=== PATIENT | male | born 1985 | race Caucasian/White ===

== ENCOUNTER 2017-06-15 06:31 | Observation (INO) ==
--- NOTE | 2017-06-15 06:48 | Emergency Department Note ---
Disposition Clinical Impression: Suicidal ideation Alcohol withdrawal Qualifiers: Complication of substance-induced condition: with unspecified complication Qualified Code(s): F10.239 - Alcohol dependence with withdrawal, unspecified Disposition: Admitted As Inpatient Condition: Fair Referrals: NONE,PCP [Primary Care Provider] - Psych HPI - General Stated Complaint: SI Time Seen by Provider: 06/15/17 06:39 Source: patient, family Mode of arrival: private vehicle Limitations: no limitations Nursing Notes Reviewed: Yes Vital Signs Reviewed: Yes - History of Present Illness Pt complaint: suicidal ideation, feels depressed Onset (ago): week(s) Duration: constant, getting worse History of similar episodes: Yes Improves with: none Worsens with: none Context: recent alcohol abuse, significant life stressor (custody [place]) Alleged intoxication: No Associated Psychiatric Symptoms: depression, suicidal ideation Associated symptoms: Reports: denies other symptoms Traumatic symptoms: denies traumatic injury Treatments prior to arrival: none Self harm or harm to others: admits thoughts of self harm, has plan ("hanging") - Related Data Home Medications Medication Instructions Recorded Confirmed No Known Home Drugs 06/15/17 06/15/17 Allergies Allergy/AdvReac Type Severity Reaction Status Date / Time No Known Allergies Allergy Verified 06/15/17 06:35 All systems ED: reviewed and negative except as stated. Review of Systems: As Per HPI Constitutional: Denies: fever, chills, weakness, weight change, night sweats Eyes: Denies: eye pain, vision change ENT ED: Denies: throat pain, epistaxis, congestion, dysphagia Cardiovascular: Denies: chest pain, palpitations, dyspnea on exertion Respiratory: Denies: cough, dyspnea, wheezes Gastrointestinal: Denies: abdominal pain, nausea, vomiting Musculoskeletal: Denies: back pain, neck pain, arthralgia Integumentary: Denies: rash, lesions Neurological: Denies: headache, weakness, confusion, vertigo Psychiatric: Reports: as per HPI, depression, suicidal thoughts. Denies: homicidal thoughts, auditory hallucinations, visual hallucinations Endocrine: Denies: fatigue, heat or cold intolerance, polydipsia, polyuria Past Medical History - Past Medical History Attestation: Yes The following information was validated with the patient. Source: patient Medical history: Reports: non-contributory Surgical history: Reports: non-contributory Psychiatric history: Reports: depression. Denies: prior suicide attempt, previous psychiatric hospitalization - Social History Smoking Status: Current every day smoker Alcohol use: Reports: heavy, recent Last drink: days (ago) (0.5) Drug use: Reports: none Physical Exam - General Limitations: no limitations General appearance: alert, in no apparent distress - Head Head exam: atraumatic, normocephalic, normal inspection - Eye Eye exam: Present: normal appearance, PERRL. Absent: scleral icterus, conjunctival injection, periorbital swelling - ENT ENT exam: mucous membranes moist - Neck Neck exam: Present: normal inspection, full ROM, trachea midline. Absent: tenderness - Expanded Neck Exam Neck exam focused ED: Absent: midline tenderness, paraspinal tenderness, tenderness (other), anterior neck swelling, JVD, carotid bruit - Chest Chest inspection: Present: normal inspection, symmetric chest wall rise - Respiratory Respiratory exam: Present: normal lung sounds bilaterally. Absent: respiratory distress, wheezes, stridor, accessory muscle use, prolonged expiratory phase - Cardiovascular Cardiovascular exam: Present: regular rate, normal rhythm - Extremities Exam Extremities exam: Present: normal inspection, full ROM - Back Exam Back exam: Present: normal inspection, full ROM - Neurological Exam Neurological exam: Present: alert, oriented X3, CN II-XII intact, normal gait - Psychiatric Psychiatric exam: Present: normal affect, depressed - Skin Skin exam: Present: warm, dry, intact, normal color Course Course Narrative: Patient with Hx of alcoholism presents from home with for psychiatric evaluation. He states, "I've been suicidal since last Monday and I need help." He describes thoughts of hanging himself. No physical attempt, no trauma, no complaints of pain anywhere. He has Hx of depression but does not take any meds. He states that he self-medicates with alcohol. He drinks heavily every day. Denies drug use. Protocol orders entered. Patient's alcohol level is 130 @ 07:00. He was experiencing withdrawal symptoms when he was seen by Dr. Gibbons. Valium was ordered for him. Patient admitted - Dr. Gibbons discussed the case with Dr. Cervantes. Vital Signs Temperature 98.6 F 06/15/17 06:36 Pulse Rate 83 06/15/17 06:36 Respiratory Rate 20 06/15/17 06:36 Blood Pressure 149/97 06/15/17 06:36 O2 Sat by Pulse Oximetry 98 06/15/17 06:36 Temperature 98.6 F 06/15/17 06:36 Pulse Rate 83 06/15/17 06:36 Respiratory Rate 20 06/15/17 06:36 Blood Pressure 149/97 06/15/17 06:36 O2 Sat by Pulse Oximetry 98 06/15/17 06:36 Oxygen Delivery Oxygen Delivery Room Air Psych - Lab Data Lab results reviewed: Yes I reviewed the patient's lab results. Result diagrams: 06/15/17 07:00 06/15/17 07:00 Lab Results 06/15/17 06/15/17 06/15/17 Range/Units 06:45 06:45 07:00 WBC 8.5 (4.3-11.1) K/mcL RBC 5.17 (4.19-5.50) M/mcL Hgb 16.4 (12.9-16.9) g/dL Hct 48.2 (37.5-50.1) % MCV 93.2 (83.0-100.0) fL MCH 31.7 (28.0-33.3) pg MCHC 34.0 (31.6-35.5) g/dL RDW 12.3 (11.5-14.5) % Plt Count 292 (140-400) K/mcL MPV 9.0 L (9.4-12.4) fL Immature Gran % 1.1 (0-4) % Seg Neutrophils % 58.5 % Lymphocytes % 31.8 % Monocytes % 7.0 % Eosinophils % 0.8 % Basophils % 0.8 % Neutrophils # 5.0 (1.6-8.9) K/mcL Lymphocytes # 2.7 (0.6-4.6) K/mcL Monocytes # 0.6 (0.0-1.3) K/mcL Eosinophils # 0.1 (0.0-0.6) K/mcL Basophils # 0.1 (0.0-0.2) K/mcL Sodium (136-145) mEq/L Potassium (3.5-4.5) mEq/L Chloride (98-109) mEq/L Carbon Dioxide (19-29) mEq/L BUN (8-26) mg/dL Creatinine (0.72-1.25) mg/dL Est GFR ( Amer) (> 60) Est GFR (Non-Af Amer) (> 60) BUN/Creatinine Ratio (6-26) Glucose (70-99) mg/dL Calculated Osmolality (280-300) Calcium (8.6-10.8) mg/dL TSH (0.350-4.840) mcIU/mL Urine Color Yellow (Yellow) Urine Clarity Clear (Clear) Urine pH 7.5 (5.0-8.0) pH Units Ur Specific [place] 1.022 (1.010-1.025) Urine Protein Negative (Neg-Trace) mg/dL Urine Glucose (UA) Normal (Normal) mg/dL Urine Ketones Negative (Negative) mg/dL Urine Blood Negative (Negative) Urine Nitrite Negative (Negative) Urine Bilirubin Negative (Negative) Urine Urobilinogen Normal (Normal) mg/dL Ur Leukocyte Esterase Negative (Negative) Salicylates (15-30) mg/dL Urine Opiates Screen Negative (Xfqosv=754) ng/mL Acetaminophen (10-30) mcg/mL Ur Barbiturates Screen Negative (Fmrzcm=903) ng/mL Ur Phencyclidine Scrn Negative (Cutoff=25) ng/mL Ur Amphetamines Screen Negative (Ekffxu=9476) ng/mL U Benzodiazepines Scrn Negative (Htkviv=673) ng/mL Urine Cocaine Screen Negative (Cutoff= 300) ng/mL U Marijuana (THC) Screen Negative (Cutoff = 50) ng/mL Ethyl Alcohol (0-10) mg/dL 06/15/17 Range/Units 07:00 WBC (4.3-11.1) K/mcL RBC (4.19-5.50) M/mcL Hgb (12.9-16.9) g/dL Hct (37.5-50.1) % MCV (83.0-100.0) fL MCH (28.0-33.3) pg MCHC (31.6-35.5) g/dL RDW (11.5-14.5) % Plt Count (140-400) K/mcL MPV (9.4-12.4) fL Immature Gran % (0-4) % Seg Neutrophils % % Lymphocytes % % Monocytes % % Eosinophils % % Basophils % % Neutrophils # (1.6-8.9) K/mcL Lymphocytes # (0.6-4.6) K/mcL Monocytes # (0.0-1.3) K/mcL Eosinophils # (0.0-0.6) K/mcL Basophils # (0.0-0.2) K/mcL Sodium 143 (136-145) mEq/L Potassium 4.0 (3.5-4.5) mEq/L Chloride 105 (98-109) mEq/L Carbon Dioxide 27 (19-29) mEq/L BUN 10 (8-26) mg/dL Creatinine 0.87 (0.72-1.25) mg/dL Est GFR ( Amer) > 60 (> 60) Est GFR (Non-Af Amer) > 60 (> 60) BUN/Creatinine Ratio 11 (6-26) Glucose 102 H (70-99) mg/dL Calculated Osmolality 295 (280-300) Calcium 9.1 (8.6-10.8) mg/dL TSH 2.070 (0.350-4.840) mcIU/mL Urine Color (Yellow) Urine Clarity (Clear) Urine pH (5.0-8.0) pH Units Ur Specific [place] (1.010-1.025) Urine Protein (Neg-Trace) mg/dL Urine Glucose (UA) (Normal) mg/dL Urine Ketones (Negative) mg/dL Urine Blood (Negative) Urine Nitrite (Negative) Urine Bilirubin (Negative) Urine Urobilinogen (Normal) mg/dL Ur Leukocyte Esterase (Negative) Salicylates < 5.0 L (15-30) mg/dL Urine Opiates Screen (Pkixhl=567) ng/mL Acetaminophen < 1.0 L (10-30) mcg/mL Ur Barbiturates Screen (Egsbpd=758) ng/mL Ur Phencyclidine Scrn (Cutoff=25) ng/mL Ur Amphetamines Screen (Pgmmzn=3274) ng/mL U Benzodiazepines Scrn (Osekag=147) ng/mL Urine Cocaine Screen (Cutoff= 300) ng/mL U Marijuana (THC) Screen (Cutoff = 50) ng/mL Ethyl Alcohol 130 H (0-10) mg/dL Psychiatric Medical Clearance - Medical Clearance Checklist Does the patient have a NEW psychiatric condition?: Yes Any abnormalities indicating possible medical illness?: No Any history of medical issues?: No Medical History: No Social History Section defined Any abnormal vital signs prior to transfer?: No Current Vitals: Last Vital Signs Temp 98.6 F 06/15/17 06:36 Pulse 83 06/15/17 06:36 Resp 20 06/15/17 06:36 BP 149/97 06/15/17 06:36 Pulse Ox 98 06/15/17 06:36 Is the patient intoxicated or cognitively impaired?: No Psychiatric Lab Panel: Drug Levels and Toxicity 06/15/17 06/15/17 06:45 07:00 Urine Opiates Screen Negative Acetaminophen < 1.0 L Ur Barbiturates Screen Negative Ur Phencyclidine Scrn Negative Ur Amphetamines Screen Negative U Benzodiazepines Scrn Negative Urine Cocaine Screen Negative U Marijuana (THC) Screen Negative Ethyl Alcohol 130 H Any abnormalities on the physical exam?: No Any abnormal labs?: No Abnormal Labs: Abnormal lab results MPV 9.0 fL (9.4-12.4) L 06/15/17 07:00 Glucose 102 mg/dL (70-99) H 06/15/17 07:00 Salicylates < 5.0 mg/dL (15-30) L 06/15/17 07:00 Acetaminophen < 1.0 mcg/mL (10-30) L 06/15/17 07:00 Ethyl Alcohol 130 mg/dL (0-10) H 06/15/17 07:00 Does the patient require durable medical equiptment?: No Is the patient ambulatory?: Yes Is the patient a fall risk?: No Has the patient been medically cleared?: Yes Statement of Medical Clearance: I have evaluated the patient, reviewed diagnostic information, and certify that the patient's medical condition is sufficiently stable that transfer to the psychiatric unit does not pose a significant risk of deterioration. Attestation Statement - Attestation Attestation: I examined this patient and my medical decision-making was reviewed with the Resident Physician. I agree with the documented findings, disposition and treatment plan as described except to the extent set forth below. Patient remains suicidal of the time of my evaluation. Is having moderately severe tremors. He cannot estimate how much he drinks everyday, says is much as he can get from the time he gets up until time he goes to bed. His significant other at bedside estimates 18-24 beers plus about a pint of vodka per day on average. Oral Valium given. Patient will require alcohol detox. We will admit him medically with inpatient consult to psychiatry.
[2017-06-15 06:57] LABS: Bilirubin,Urine Negative (Negative); Blood,Urine Negative (Negative); Clarity,Urine Clear (Clear); Color,Urine Yellow (Yellow); Glucose,Urine (UA) Normal (Normal); Ketones,Urine Negative (Negative); Leukocyte Esterase,Urine Negative (Negative); Nitrite,Urine Negative (Negative); PH,Urine 7.5 pH Units (5.0-8.0); Protein,Urine Negative (Neg-Trace); Specific Gravity,Urine 1.022 (1.010-1.025); Urobilinogen,Urine Normal (Normal)
[2017-06-15 07:03] LABS: Amphetamine Screen,Urine Negative ng/mL (Cutoff=1000); Barbiturate Screen,Urine Negative ng/mL (Cutoff=200); Benzodiazepines Screen,Urine Negative ng/mL (Cutoff=200); Cannabinoid Screen,Urine Negative ng/mL (Cutoff = 50); Cocaine Screen,Urine Negative ng/mL (Cutoff= 300); Opiate Screen,Urine Negative ng/mL (Cutoff=300); Phencyclidine Screen,Urine Negative ng/mL (Cutoff=25)
[2017-06-15 07:17] LABS: Eosinophils % 0.8 %; Hematocrit 48.2 % (37.5-50.1); Hemoglobin 16.4 g/dL (12.9-16.9); Immature Granulocytes % 1.1 % (0-4); Lymphocytes % 31.8 %; Mean Corpuscular Hemoglobin 31.7 pg (28.0-33.3); Mean Corpuscular Volume 93.2 fL (83.0-100.0); Platelet Count 292 K/mcL (140-400); Red Blood Count 5.17 M/mcL (4.19-5.50); Red Cell Distribution Width 12.3 % (11.5-14.5); Segmented Neutrophils % 58.5 %
[2017-06-15 07:18] LABS: Basophils # 0.1 K/mcL (0.0-0.2); Basophils % 0.8 %; Eosinophils # 0.1 K/mcL (0.0-0.6); Lymphocytes # 2.7 K/mcL (0.6-4.6); Monocytes # 0.6 K/mcL (0.0-1.3)
[2017-06-15] MEDS ORDERED: diazePAM 10 MG TABLET PO ONE (07:26)
[2017-06-15 07:40] LABS: BUN/Creatinine Ratio 11 (6-26); Blood Urea Nitrogen 10 mg/dL (8-26); Calcium 9.1 mg/dL (8.6-10.8); Carbon Dioxide 27 mEq/L (19-29); Chloride 105 mEq/L (98-109); Ethanol 130 mg/dL (0-10); Glucose 102 mg/dL (70-99); Osmolality,Calculated 295 (280-300); Sodium 143 mEq/L (136-145); eGFR For African Americans > 60 (> 60); eGFR For Non-African Americans > 60 (> 60)
[2017-06-15 07:41] LABS: Acetaminophen < 1.0 mcg/mL (10-30); Salicylate < 5.0 mg/dL (15-30)
[2017-06-15] MEDS ORDERED: Ondansetron 4 MG/2 ML VIAL IVP ONE (09:35)
[2017-06-15] MEDS ORDERED: 0.9 % Sodium Chloride 1,000 ML IVC ONE (09:36)
[2017-06-15] MEDS ORDERED: Naloxone 0.4 MG/ML INJ IVP PRN (10:10)
[2017-06-15] MEDS ORDERED: *HR* LORazepam 2 MG/ML VIAL IVP PRN ×2 (10:14)
--- NOTE | 2017-06-15 10:20 | Internal Med History&Physical ---
Date of Encounter: 06/19/17 Time of Encounter: 10:20 Assessment and Plan (1) Suicidal ideation Status: Acute Patient has a strong suicidal ideation. Patient has a plan for suicide. We will get psychiatry to evaluate patient. Patient is not medically cleared to go to psychiatry unit. (2) Alcohol dependence with intoxication Status: Acute Patient is admitted with the alcohol intoxication. Patient will be placed on CIWA protocol We will follow CIWA strictly. Qualifiers: Complication of substance-induced condition: with unspecified complication Qualified Code(s): F10.229 - Alcohol dependence with intoxication, unspecified (3) Alcohol withdrawal Status: Acute Patient will likely get into the colon withdrawal. We will follow the protocol. Once patient is medically cleared then he can go to psychiatric unit for further evaluation Qualifiers: Complication of substance-induced condition: with unspecified complication Qualified Code(s): F10.239 - Alcohol dependence with withdrawal, unspecified Internal Medicine - H&P: HPI Chief complaint: Feeling depressed Admitted From: Emergency Dept Plans for Post Hospital Care: Home History of present illness: Mr. Jovel is a 31 year old male who was brought by his emergency room for possible intentional suicidal attempt. Patient is here along with his . Patient was telling that he does not feel like worth living and this morning he was in a bathroom was trying to hang himself with the belt/hairdryer wire. Patient's noticed this and she was very concerned about his behavior and that was the reason she brought him emergency room for further evaluation. Patient is a chronic alcoholic and he is been drinking excessively for the past 3-4 days. Patient denies chest pain, shortness of breath, nausea, vomiting, abdominal pain, dizziness or diarrhea. Patient was evaluated in the emergency room. basic labs were drawn. Noted that patient's alcohol level is 1:30. Valium was given to the patient and hospitalist service was called for admission. Reason for hospitalization: Suicidal intention. Acute alcohol intoxication. Family history: Noncontributory Past Med Surg Social Fam HX - Past Medical History Medical history: non-contributory Psychiatric history: depression - Past Surgical History Surgical History: non-contributory - Social History Smoking Status: Current every day smoker Alcohol use: heavy, recent Drug use: none - Family History Mother Hx Family Cardiac Disorders: Yes (htn) Father Hx Family Cardiac Disorders: Yes (htn) Internal Medicine - H&P: Meds Folic Acid 1 mg PO DAILY #30 tablet 06/17/17 [Rx] Nicotine Patch [Nicoderm] 21 mg TD DAILY #7 patch.td24 06/17/17 [Rx] Thiamine (B-1) [Vitamin B-1] 100 mg PO DAILY #30 tablet 06/17/17 [Rx] Vitamin B Complex/Vit C/Vit E [Stresstab] 1 tab PO DAILY 06/17/17 [History] 3 Allergy/AdvReac Type Severity Reaction Status Date / Time No Known Allergies Allergy Verified 06/15/17 06:35 All Systems PM: A 10-system review of systems was performed and is negative for pertinent findings except as documented above in the HPI. - Constitutional Constitutional: no chills, no fever(s), no night sweats - EENT Eyes: no change in vision, no discharge, no pain, no photophobia Ears: no ear discharge, no ear pain, no tinnitus Nose, mouth and throat: no dysphagia, no nasal discharge, no neck pain, no sore throat - Cardiovascular Cardiovascular ROS IM: no chest pain, no diaphoresis, no dyspnea, no lightheadedness, no palpitations, no syncope - Respiratory Respiratory: no cough, no dyspnea, no wheezing, no excessive phlegm production - Gastrointestinal Gastrointestinal: no abdominal pain, no diarrhea, no hematemesis, no hematochezia, no melena, no nausea, no vomiting - Musculoskeletal Musculoskeletal ROS IM: no numbness, no tingling - Integumentary Integumentary IM: no rash, no unusual bruising - Neurological Neurological ROS: no confusion, no convulsions, no focal weakness, no numbness, no tingling, no tremor(s) - Hematologic/Lymphatic Hematologic/Lymphatic: no easy bruising - Constitutional Vitals: Temp Pulse Resp BP Pulse Ox 99.1 F 81 16 128/85 97 06/15/17 09:55 06/15/17 09:55 06/15/17 09:55 06/15/17 09:55 06/15/17 09:55 - Head Head exam: Present: atraumatic, normocephalic - Eye Eye exam: Present: PERRL, conjuntiva pink, sclera anicteric Pupils: Present: PERRL - Neck Neck exam general surgery: Present: supple, trachea midline. Absent: lymphadenopathy - Respiratory Respiratory exam: Present: CTAB. Absent: accessory muscle use, rales, rhonchi, wheezes - Cardiovascular Cardiovascular exam: Present: RRR, +S1, +S2. Absent: diastolic murmur, gallop, rubs, systolic murmur - GI/Abdominal GI/Abdominal exam: Present: normal bowel sounds, soft, no peritoneal signs. Absent: distended, tenderness - Extremities Exam Extremities exam: Present: warm, radial pulses palpable and symmetrical. Absent : calf tenderness, cyanotic, pedal edema - Neurological Exam Neurological exam: Present: CN II-XII intact, oriented X3, no focal deficits. Absent: pronater drift, facial droop, speech deficit - Skin Skin exam: Present: dry, intact Internal Med - H&P Results - Labs CBC & Chem 7: 06/17/17 05:22 06/17/17 05:22
[2017-06-15 11:00] LABS: INR 1.1; Prothrombin Time 11.3 Seconds (9.4-12.1)
[2017-06-15 11:05] LABS: Amylase 77 Units/L (25-125); Ethanol 45 mg/dL (0-10); Lipase 21 Units/L (8-78)
[2017-06-15] MEDS: 0.9 % Sodium Chloride 1,000 ML IVC SCH (11:56)
[2017-06-15] MEDS: Nicotine 21 MG PATCH.TD24 TD SCH (11:56)
[2017-06-15] MEDS: *HR* LORazepam 2 MG/ML VIAL IVP PRN ×2 (12:27→20:39)
--- NOTE | 2017-06-15 15:05 | Consult Note ---
Date of Encounter: 06/15/17 Time of Encounter: 14:30 Assessment & Recommendation (1) Suicidal ideation Current visit: Yes Status: Acute Assessment & Recommendation: Patient attempted suicide by hanging, he will be transferred to 1 A after medical stabilization. (2) Alcohol dependence with intoxication Current visit: Yes Status: Acute Qualifiers: Complication of substance-induced condition: with unspecified complication Qualified Code(s): F10.229 - Alcohol dependence with intoxication, unspecified History of Present Illness Patient: new to practice Requesting Physician: Wendy Blackburn CNP Reason for consult: Suicide attempts, alcohol intoxication History of present illness: Mr. Jovel is a 31 year old male admitted to the medical service for evaluation treatment of alcohol intoxication and suicidal ideation. Patient is reported to attempts hanging himself prior to admission. Psychiatric consultation was requested to evaluate suicide and recommended treatment. Patient reports she has long history of alcohol abuse and dependence with periods of binging. On admission his blood alcohol level was 130, UDS was negative for drugs. Patient states she is having significant stress in the family related to custody issues and marital issues. Patient was guarded and would not elaborate on his life stressors. He denies any previous psychiatric treatment or hospitalization, he denied any substance abuse rehabilitation.. CC: Wendy Blackburn CNP Past Med Surg Social Fam HX - Past Medical History Medical history: non-contributory - Past Psychiatric History Psychiatric history: Reports: no psych history - Past Surgical History Surgical History: non-contributory - Social History Smoking Status: Current every day smoker Smokeless Tobacco Status: Yes Alcohol use: heavy, recent Drug use: none - Family History Mother Hx Family Cardiac Disorders: Yes (htn) Father Hx Family Cardiac Disorders: Yes (htn) Medications & Allergies No Known Home Drugs 06/15/17 [History] 3 Allergy/AdvReac Type Severity Reaction Status Date / Time No Known Allergies Allergy Verified 06/15/17 06:35 Review of Systems Psychiatric: Reports: depression, suicidal ideation, hopelessness Mental Status Exam Patient orientation: Yes Person, Yes Time, Yes Place Level of alertness: Alert Patient appearance: Appropriate, Well Groomed Behavior: calm, cooperative Psychomotor activity: Normal Eye contact: Maintains Eye Contact Mood description: Euthymic/stable Affect description: congruent with mood, constricted Speech pattern: Normal rate, Normal rhythm, Normal tone Speech volume: Normal Thought process: Linear, Goal Oriented Thought content: Yes Suicidal ideation, No Homicidal ideation, No Overt delusions Perceptual disturbances: No Auditory hallucinations, No Visual hallucinations Attention span: Capable of Focused Attention Memory description: Grossly Intact Patient reliability: Reliable Historian Intelligence estimate: Average Judgment: Limited Insight: Partial Results - Vital Signs Vital signs: Temp Pulse Resp BP Pulse Ox 99.1 F 84 18 156/83 99 06/15/17 09:55 06/15/17 12:12 06/15/17 12:12 06/15/17 12:12 06/15/17 12:12 - Drug Levels and Toxicology Drug Levels and Toxicology: Drug Levels and Toxicity 06/15/17 10:40 Ethyl Alcohol 45 H - Labs Labs: Laboratory Last Values WBC 8.5 K/mcL (4.3-11.1) 06/15/17 07:00 RBC 5.17 M/mcL (4.19-5.50) 06/15/17 07:00 Hgb 16.4 g/dL (12.9-16.9) 06/15/17 07:00 Hct 48.2 % (37.5-50.1) 06/15/17 07:00 MCV 93.2 fL (83.0-100.0) 06/15/17 07:00 MCH 31.7 pg (28.0-33.3) 06/15/17 07:00 MCHC 34.0 g/dL (31.6-35.5) 06/15/17 07:00 RDW 12.3 % (11.5-14.5) 06/15/17 07:00 Plt Count 292 K/mcL (140-400) 06/15/17 07:00 MPV 9.0 fL (9.4-12.4) L 06/15/17 07:00 Immature Gran % 1.1 % (0-4) 06/15/17 07:00 Seg Neutrophils % 58.5 % 06/15/17 07:00 Lymphocytes % 31.8 % 06/15/17 07:00 Monocytes % 7.0 % 06/15/17 07:00 Eosinophils % 0.8 % 06/15/17 07:00 Basophils % 0.8 % 06/15/17 07:00 Neutrophils # 5.0 K/mcL (1.6-8.9) 06/15/17 07:00 Lymphocytes # 2.7 K/mcL (0.6-4.6) 06/15/17 07:00 Monocytes # 0.6 K/mcL (0.0-1.3) 06/15/17 07:00 Eosinophils # 0.1 K/mcL (0.0-0.6) 06/15/17 07:00 Basophils # 0.1 K/mcL (0.0-0.2) 06/15/17 07:00 PT 11.3 Seconds (9.4-12.1) 06/15/17 10:40 INR 1.1 06/15/17 10:40 Sodium 143 mEq/L (136-145) 06/15/17 07:00 Potassium 4.0 mEq/L (3.5-4.5) 06/15/17 07:00 Chloride 105 mEq/L (98-109) 06/15/17 07:00 Carbon Dioxide 27 mEq/L (19-29) 06/15/17 07:00 BUN 10 mg/dL (8-26) 06/15/17 07:00 Creatinine 0.87 mg/dL (0.72-1.25) 06/15/17 07:00 Est GFR ( Amer) > 60 (> 60) 06/15/17 07:00 Est GFR (Non-Af Amer) > 60 (> 60) 06/15/17 07:00 BUN/Creatinine Ratio 11 (6-26) 06/15/17 07:00 Glucose 102 mg/dL (70-99) H 06/15/17 07:00 Calculated Osmolality 295 (280-300) 06/15/17 07:00 Calcium 9.1 mg/dL (8.6-10.8) 06/15/17 07:00 Amylase 77 Units/L (25-125) 06/15/17 10:40 Lipase 21 Units/L (8-78) 06/15/17 10:40 TSH 2.070 mcIU/mL (0.350-4.840) 06/15/17 07:00 Urine Color Yellow (Yellow) 06/15/17 06:45 Urine Clarity Clear (Clear) 06/15/17 06:45 Urine pH 7.5 pH Units (5.0-8.0) 06/15/17 06:45 Ur Specific [place] 1.022 (1.010-1.025) 06/15/17 06:45 Urine Protein Negative mg/dL (Neg-Trace) 06/15/17 06:45 Urine Glucose (UA) Normal mg/dL (Normal) 06/15/17 06:45 Urine Ketones Negative mg/dL (Negative) 06/15/17 06:45 Urine Blood Negative (Negative) 06/15/17 06:45 Urine Nitrite Negative (Negative) 06/15/17 06:45 Urine Bilirubin Negative (Negative) 06/15/17 06:45 Urine Urobilinogen Normal mg/dL (Normal) 06/15/17 06:45 Ur Leukocyte Esterase Negative (Negative) 06/15/17 06:45 Salicylates < 5.0 mg/dL (15-30) L 06/15/17 07:00 Urine Opiates Screen Negative ng/mL (Ljpibb=738) 06/15/17 06:45 Acetaminophen < 1.0 mcg/mL (10-30) L 06/15/17 07:00 Ur Barbiturates Screen Negative ng/mL (Upwkzh=964) 06/15/17 06:45 Ur Phencyclidine Scrn Negative ng/mL (Cutoff=25) 06/15/17 06:45 Ur Amphetamines Screen Negative ng/mL (Brbbnf=2141) 06/15/17 06:45 U Benzodiazepines Scrn Negative ng/mL (Eqqpqd=706) 06/15/17 06:45 Urine Cocaine Screen Negative ng/mL (Cutoff= 300) 06/15/17 06:45 U Marijuana (THC) Screen Negative ng/mL (Cutoff = 50) 06/15/17 06:45 Ethyl Alcohol 45 mg/dL (0-10) H 06/15/17 10:40 Consult Discharge Plan - Plan Referrals: NONE,PCP [Primary Care Provider] -
[2017-06-15] MEDS ORDERED: Acetaminophen 325 MG TABLET PO ONE (21:31)
--- NOTE | 2017-06-15 23:55 | Event Note ---
Date of Encounter: 06/15/17 Time of Encounter: 23:15 Patient was c/o chest pain, sweating, and anxiety. He described his chest pain as sharp/stabbing, lasting only a few seconds, mid-sternal, 2-3/10 in pain scale , non-radiating, and occurred twice. When I saw him he was not c/o any chest pain at the time. He denies any SOB, nausea, or vomiting. EKG was done and showed a sinus rhythm with no ST elevations or ischemic changes. He was given 2 mg Ativan earlier at 20:39. I evaluated his CIWA score at the time as a 7. We will continue to monitor him for now and revaluate when his next dose of Ativan is scheduled PRN.
[2017-06-16] MEDS: 0.9 % Sodium Chloride 1,000 ML IVC SCH (01:05)
[2017-06-16 05:31] LABS: Basophils # 0.1 K/mcL (0.0-0.2); Basophils % 0.6 %; Eosinophils # 0.1 K/mcL (0.0-0.6); Eosinophils % 1.2 %; Hematocrit 43.8 % (37.5-50.1); Hemoglobin 14.9 g/dL (12.9-16.9); Immature Granulocytes % 0.5 % (0-4); Lymphocytes # 2.6 K/mcL (0.6-4.6); Mean Corpuscular Hemoglobin 31.4 pg (28.0-33.3); Mean Corpuscular Volume 92.4 fL (83.0-100.0); Mean Platelet Volume 9.7 fL (9.4-12.4); Monocytes # 0.7 K/mcL (0.0-1.3); Monocytes % 8.6 %; Neutrophils # 4.8 K/mcL (1.6-8.9); Platelet Count 198 K/mcL (140-400); Red Blood Count 4.74 M/mcL (4.19-5.50); Red Cell Distribution Width 11.8 % (11.5-14.5); Segmented Neutrophils % 58.1 %
[2017-06-16 05:44] LABS: Alanine Aminotransferase 28 Units/L (0-55); Albumin 3.1 g/dL (3.5-5.0); Albumin/Globulin Ratio 0.9 (1.1-2.2); Alkaline Phosphatase 67 Units/L (38-126); Aspartate Amino Transferase 24 Units/L (5-34); BUN/Creatinine Ratio 16 (6-26); Bilirubin,Total 1.4 mg/dL (0.2-1.2); Blood Urea Nitrogen 14 mg/dL (8-26); Calcium 8.8 mg/dL (8.6-10.8); Carbon Dioxide 27 mEq/L (19-29); Chloride 105 mEq/L (98-109); Globulin 3.3 g/dL (2.4-3.5); Glucose 94 mg/dL (70-99); Osmolality,Calculated 286 (280-300); Potassium 4.4 mEq/L (3.5-4.5); Sodium 138 mEq/L (136-145); Total Protein 6.4 g/dL (6.0-8.3); eGFR For African Americans > 60 (> 60); eGFR For Non-African Americans > 60 (> 60)
[2017-06-16] MEDS ORDERED: Ondansetron 4 MG/2 ML VIAL ONE (08:22)
[2017-06-16] MEDS ORDERED: Ondansetron 4 MG/2 ML VIAL IVP PRN (08:23)
[2017-06-16] MEDS: Nicotine 21 MG PATCH.TD24 TD SCH (08:28)
[2017-06-16] MEDS: Thiamine (B-1) 100 MG TABLET PO SCH (08:29)
[2017-06-16] MEDS: Folic Acid 1 MG TABLET PO SCH (08:29)
[2017-06-16] MEDS: Vitamin B Complex/Vit C/Vit E 1 EACH TABLET PO SCH (08:29)
--- NOTE | 2017-06-16 10:07 | Internal Med Progress Note ---
Date of Encounter: 06/16/17 Time of Encounter: 10:05 - Assessment and plan (1) Suicidal ideation Current Visit: Yes Status: Acute Assessment and plan: Patient is admitted for suicidal ideation. He definitely has a plan to commit suicide by either hanging himself or by shooting himself. Patient's at bedside and she is concerned about his plan. Noted that psychiatry has already evaluated the patient. Patient is not medically cleared to go to [facility] a for further evaluation. Please note that the alcohol level is less than 10. (2) Alcohol dependence with intoxication Current Visit: Yes Status: Acute Assessment and plan: Patient has multiple family stressors and that is the reason he is getting a cold dependence and many occasions intoxicated. Qualifiers: Complication of substance-induced condition: with unspecified complication Qualified Code(s): F10.229 - Alcohol dependence with intoxication, unspecified (3) Alcohol withdrawal Current Visit: Yes Status: Acute Assessment and plan: Patient is not currently alcohol withdrawal. He is on appropriate medication for the same. Once patient is more stable we will transfer him to psychiatric unit for further management. Qualifiers: Complication of substance-induced condition: with unspecified complication Qualified Code(s): F10.239 - Alcohol dependence with withdrawal, unspecified - Subjective Interval history: Patient seen and examined. Chart reviewed. Patient's at bedside. Patient denies chest pain, shortness of breath, nausea, vomiting, abdominal pain , dizziness or diarrhea. - Constitutional Vitals: Temp Pulse Resp BP Pulse Ox 98.8 F 74 16 136/89 100 06/16/17 09:00 06/16/17 09:00 06/16/17 09:00 06/16/17 09:00 06/16/17 09:00 General appearance: Present: A&O X 3, pleasant, no acute distress, answers questions appropriately - Head Head exam: Present: atraumatic, normocephalic - Eye Eye exam: Present: PERRL, conjuntiva pink, sclera anicteric Pupils: Present: PERRL - Neck Neck exam general surgery: Present: supple, trachea midline. Absent: lymphadenopathy - Respiratory Respiratory exam: Present: CTAB. Absent: accessory muscle use, rales, rhonchi, wheezes - Cardiovascular Cardiovascular exam: Present: RRR, +S1, +S2. Absent: diastolic murmur, gallop, rubs, systolic murmur - GI/Abdominal GI/Abdominal exam: Present: normal bowel sounds, soft, no peritoneal signs. Absent: distended, tenderness - Extremities Exam Extremities exam: Present: warm, radial pulses palpable and symmetrical. Absent : calf tenderness, cyanotic, pedal edema - Neurological Exam Neurological exam: Present: CN II-XII intact, oriented X3, no focal deficits. Absent: pronater drift, facial droop, speech deficit - Skin Skin exam: Present: dry, intact Internal Medicine: Result - Labs CBC & Chem 7: 06/16/17 04:57 06/16/17 04:57 Labs: Short CBC 06/16/17 Range/Units 04:57 WBC 8.2 (4.3-11.1) K/mcL Hgb 14.9 D (12.9-16.9) g/dL Hct 43.8 (37.5-50.1) % Plt Count 198 (140-400) K/mcL Neutrophils # 4.8 (1.6-8.9) K/mcL BMP 06/16/17 04:57 Sodium 138 Potassium 4.4 Chloride 105 Carbon Dioxide 27 BUN 14 Creatinine 0.89 Glucose 94 Calcium 8.8 Liver Function 06/16/17 Range/Units 04:57 Total Bilirubin 1.4 H (0.2-1.2) mg/dL AST 24 (5-34) Units/L ALT 28 (0-55) Units/L Alkaline Phosphatase 67 (38-126) Units/L Albumin 3.1 L (3.5-5.0) g/dL - ABG Interpretation ABG results: PT/INR, D-dimer PT 11.3 Seconds (9.4-12.1) 06/15/17 10:40 Consult Discharge Plan - Plan Referrals: NONE,PCP [Primary Care Provider] -
[2017-06-16] MEDS ORDERED: Ondansetron 4 MG/2 ML VIAL IVP SCH (12:00)
--- NOTE | 2017-06-16 17:41 | Electrocardiograph Report ---
[place] [id number] Test Date: 2017-06-15 Pat Name: Dariusz Jovel Department: 113 Room: 3B64 Gender: M Associate Technician: : [id number] Requested By: Wendy Blackburn Order Number: [id number] Reading MD: Joey Avila DO Measurements Intervals [place] Rate: 68 P: 54 W[place]: 143 QRS: 22 QRSD: 105 T: 19 QT: 377 QTc: 394 Interpretive Statements Sinus rhythm Electronically Signed On 06-16-2017 17:07:20 EST by Joey Avila DO
[2017-06-16] MEDS ORDERED: Acetaminophen 325 MG TABLET PO PRN (18:14)
[2017-06-16] MEDS: *HR* LORazepam 2 MG/ML VIAL IVP PRN (23:09)
[2017-06-17 05:57] LABS: Basophils % 0.4 %; Eosinophils # 0.1 K/mcL (0.0-0.6); Eosinophils % 1.5 %; Hematocrit 46.7 % (37.5-50.1); Hemoglobin 15.9 g/dL (12.9-16.9); Immature Granulocytes % 0.4 % (0-4); Lymphocytes # 2.5 K/mcL (0.6-4.6); Lymphocytes % 26.7 %; Mean Corpuscular Hemoglobin 31.7 pg (28.0-33.3); Mean Corpuscular Volume 93.2 fL (83.0-100.0); Mean Platelet Volume 9.5 fL (9.4-12.4); Monocytes # 0.8 K/mcL (0.0-1.3); Monocytes % 8.3 %; Neutrophils # 5.8 K/mcL (1.6-8.9); Platelet Count 223 K/mcL (140-400); Red Blood Count 5.01 M/mcL (4.19-5.50); Red Cell Distribution Width 11.8 % (11.5-14.5); Segmented Neutrophils % 62.7 %
[2017-06-17 06:02] LABS: Alanine Aminotransferase 29 Units/L (0-55); Albumin 3.4 g/dL (3.5-5.0); Alkaline Phosphatase 76 Units/L (38-126); Aspartate Amino Transferase 23 Units/L (5-34); BUN/Creatinine Ratio 18 (6-26); Bilirubin,Total 0.9 mg/dL (0.2-1.2); Blood Urea Nitrogen 16 mg/dL (8-26); Calcium 8.9 mg/dL (8.6-10.8); Carbon Dioxide 24 mEq/L (19-29); Chloride 104 mEq/L (98-109); Globulin 3.4 g/dL (2.4-3.5); Glucose 98 mg/dL (70-99); Osmolality,Calculated 287 (280-300); Potassium 4.3 mEq/L (3.5-4.5); Sodium 138 mEq/L (136-145); Total Protein 6.8 g/dL (6.0-8.3); eGFR For African Americans > 60 (> 60); eGFR For Non-African Americans > 60 (> 60)
[2017-06-17] MEDS: Thiamine (B-1) 100 MG TABLET PO SCH (09:54)
[2017-06-17] MEDS: Nicotine 21 MG PATCH.TD24 TD SCH (09:54)
[2017-06-17] MEDS: Vitamin B Complex/Vit C/Vit E 1 EACH TABLET PO SCH (09:54)
[2017-06-17] MEDS: Folic Acid 1 MG TABLET PO SCH (09:54)
[2017-06-17 10:54] VITALS: BP 111/72
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
== END 2017-06-17 12:00 | DRG 775 ==
LOC: 3BNU 06:31 → EMEROO 06:31 → 3BNU 08:38
PROVIDERS: ADMIT Internal Medicine; ATTEND Registered Nurse

== ENCOUNTER 2017-06-18 10:51 | Inpatient (IN) ==
--- NOTE | 2017-06-17 13:49 | Discharge Summary ---
Date of Encounter: 06/18/17 Time of Encounter: 13:44 History of Present Illness Chief complaint: Suicidal ideation Admitted From: Intrahospital Transfer (3 B) History of Present Illness: Mr. Jovel is a 31 year old male admitted from the medical floor evaluation treatment of suicide ideation and alcohol dependence. Patient was medically stabilized prior to admission to 1 a. This is the first psychiatric admission for this patient who reports long history of alcohol dependence since age 18, recently he has been binge drinking for the last several weeks. He has been dealing with his multiple stressors related to marital problems and custody issues, he felt overwhelmed and attempted to hang himself in a hotel room, was concerned and brought him into the hospital. Patient denied any past suicide attempts, and denied any history or treatment for mental health or substance abuse. Past Med Surg Social Fam HX - Past Medical History Medical history: no medical history - Past Psychiatric History Psychiatric history: Reports: no psych history - Past Surgical History Surgical History: no surgical history - Social History Smoking Status: Current every day smoker Smokeless Tobacco Status: Yes Alcohol use: heavy, recent Drug use: none - Family History Mother Hx Family Cardiac Disorders: Yes (htn) Father Hx Family Cardiac Disorders: Yes (htn) Medications - Discharge Medications Folic Acid 1 mg PO DAILY #30 tablet 06/17/17 [Rx] Nicotine Patch [Nicoderm] 21 mg TD DAILY #7 patch.td24 06/17/17 [Rx] Thiamine (B-1) [Vitamin B-1] 100 mg PO DAILY #30 tablet 06/17/17 [Rx] Vitamin B Complex/Vit C/Vit E [Stresstab] 1 tab PO DAILY 06/17/17 [History] 3 Allergy/AdvReac Type Severity Reaction Status Date / Time No Known Allergies Allergy Verified 06/15/17 06:35 Review of Systems Psychiatric: Reports: suicidal ideation Mental Status Exam - Mental Status Exam Patient orientation: Yes Person, Yes Time, Yes Place Level of alertness: Alert Patient appearance: Appropriate, Well Groomed Behavior: calm, cooperative Psychomotor activity: Normal Eye contact: Maintains Eye Contact Mood description: Euthymic/stable Affect description: congruent with mood, full range Speech pattern: Normal rate, Normal rhythm, Normal tone Speech Volume: Normal Thought process: Linear, Goal Oriented Thought Content: Yes Suicidal ideation, No Homicidal ideation, No Overt delusions Perceptual Disturbances: No Auditory hallucinations, No Visual hallucinations Judgment: Limited Insight: Partial Results - Vital Signs Vital signs: Temp Pulse Resp BP 97.8 F 91 18 122/75 06/17/17 12:11 06/17/17 12:11 06/17/17 12:11 06/17/17 12:11 Diagnosis - Discharge Diagnosis (1) Suicidal ideation Status: Acute (2) Alcohol dependence Status: Acute Qualifiers: Qualified Code(s): F10.231 - Alcohol dependence with withdrawal delirium (3) Alcohol dependence with intoxication Status: Acute Qualifiers: Complication of substance-induced condition: with unspecified complication Qualified Code(s): F10.229 - Alcohol dependence with intoxication, unspecified Assessment and Plan - Follow up Plan Disposition: Admitted As Inpatient Provider Date of admission: 06/17/17 11:51 Hospital Course Hospital course: Mr. Jovel is a 31 year old male - Time Spent with Patient Total time spent providing and/or coordinating discharge services: Quality - Multiple Antipsychotics Patient discharged on 2 or more antipsychotic medications: No
[2017-06-17] MEDS: hydrOXYzine pamoate 25 MG CAPSULE PO PRN ×2 (15:45→20:46)
[2017-06-17] MEDS: traZODone 50 MG TABLET PO PRN (20:46)
--- NOTE | 2017-06-18 10:41 | Psychiatry Progress Note ---
Date of Encounter: 06/18/17 Time of Encounter: 10:38 Subjective Interval history: Patient is seen for follow-up. Nursing staff notified me yesterday the patient is not having withdrawal symptoms feeling shaky and sweaty. He was evaluated and Librium was ordered with good response. Patient had long history of heavy drinking and at risk of having severe withdrawal symptoms. We will continue to monitor him. He is denying any suicidal ideation at this time, he is concerned about his discharge plans and upcoming custody court hearing. Review of Systems Psychiatric: Reports: suicidal ideation Objective: Exam Patient orientation: Yes Person, Yes Time, Yes Place Level of alertness: Alert Patient appearance: Appropriate, Well Groomed Behavior: calm, cooperative, guarded Psychomotor activity: Normal Eye contact: Maintains Eye Contact Mood description: Euthymic/stable, Anxious Affect description: congruent with mood, constricted, blunted Speech pattern: Normal rate, Normal rhythm, Normal tone Speech volume: Normal Thought process: Linear, Goal Oriented Thought content: No Suicidal ideation, No Homicidal ideation, No Overt delusions Perceptual disturbances: No Auditory hallucinations, No Visual hallucinations Judgment: Fair Insight: Partial Results - Vital Signs Vital Signs: Temp Pulse Resp BP 97.2 F L 87 16 122/80 06/17/17 20:27 06/17/17 20:27 06/17/17 20:27 06/17/17 20:27 Assessment and Plan (1) Suicidal ideation Current visit: No Status: Acute Plan: Continue hospitalization, Close observation, Suicide Precautions per unit protocol, Encourage participation in unit milieu, Group Therapy, Monitor sleep, Monitor appetite (2) Alcohol dependence Current visit: Yes Status: Acute Plan: Continue hospitalization, Close observation, Suicide Precautions per unit protocol, Encourage participation in unit milieu, Group Therapy, Monitor sleep, Monitor appetite (3) Alcohol dependence with intoxication Current visit: No Status: Acute Plan: Continue hospitalization, Close observation, Suicide Precautions per unit protocol, Encourage participation in unit milieu, Group Therapy, Monitor sleep, Monitor appetite Qualifiers: Complication of substance-induced condition: with unspecified complication Qualified Code(s): F10.229 - Alcohol dependence with intoxication, unspecified
[~2017-06-18 10:51] MED LIST: *HR* LORazepam 1 MG TABLET PO PRN; *HR* LORazepam 2 MG/ML VIAL IM PRN; Haloperidol Lactate 5 MG/ML VIAL IM PRN; MOM Conc 10 ML UD.LIQ PO PRN; Mag Hydrox/Al Hydrox/Simeth 30 ML UDC PO PRN
[2017-06-18] MEDS: Nicotine 21 MG PATCH.TD24 TD SCH (11:07)
[2017-06-18] MEDS: hydrOXYzine pamoate 25 MG CAPSULE PO PRN (20:08)
[2017-06-18] MEDS: traZODone 50 MG TABLET PO PRN (20:08)
[2017-06-19] MEDS: Nicotine 21 MG PATCH.TD24 TD SCH (08:47)
--- NOTE | 2017-06-19 10:05 | Psychiatry Progress Note ---
Date of Encounter: 06/19/17 Time of Encounter: 09:55 Subjective Interval history: Patient seen today for follow up , case d/w treatment team and chart reviewed. Patient has no prior treatment history for mental illness, when he was in [employer] he had been in rehab for alcohol. he was admitted for depression and suicidal attempt from [facility] floor , as was detox from Alcohol. at present dysphoric, i am extra down , lot going on in my life, i have lotof anxiety and i can not sleep hardly. states alcohol helps me with all these things. Review of Systems Psychiatric: Reports: depression, anxiety, abnormal sleep pattern, suicidal ideation, anhedonia Objective: Exam Patient orientation: Yes Person, Yes Time, Yes Place Level of alertness: Alert Patient appearance: Appropriate Behavior: cooperative, withdrawn Psychomotor activity: Slowed Eye contact: Minimal Contact Mood description: Depressed Affect description: congruent with mood, anxious Speech pattern: Slowed Speech volume: Normal Thought process: Logical Thought content: Yes Intact Judgment: Fair Insight: Partial Results - Vital Signs Vital Signs: Temp Pulse Resp BP 97 F L 84 14 115/81 06/19/17 09:00 06/19/17 09:00 06/19/17 09:00 06/19/17 09:00 Assessment and Plan (1) Major depressive disorder with single episode Current visit: Yes Status: Acute Plan: Continue hospitalization, Close observation, Suicide Precautions per unit protocol, Encourage participation in unit milieu, Group Therapy, Monitor sleep, Monitor appetite, Family/Supportive other meeting Additional Plan: will start anti depressant celexa 20 mg po am , continue unit milieu Risks, benefits, side effects, alternatives discussed w/pt: Yes Patient agreeable to treatment: Yes Qualifiers: Active/Remission status: currently active Major depression episode severity : severe Psychotic features: without psychotic features Qualified Code(s): F32.2 - Major depressive disorder, single episode, severe without psychotic features (2) Suicidal ideation Current visit: No Status: Acute Plan: Continue hospitalization, Close observation, Suicide Precautions per unit protocol, Encourage participation in unit milieu, Family/Supportive other meeting Risks, benefits, side effects, alternatives discussed w/pt: Yes Patient agreeable to treatment: Yes (3) Alcohol dependence Current visit: Yes Status: Acute Plan: Continue hospitalization, Close observation Risks, benefits, side effects, alternatives discussed w/pt: Yes Patient agreeable to treatment: Yes Qualifiers: Substance use status: with intoxication (4) Anxiety Current visit: Yes Status: Chronic Plan: Continue hospitalization, Close observation Risks, benefits, side effects, alternatives discussed w/pt: Yes Patient agreeable to treatment: Yes
[2017-06-19] MEDS: Ibuprofen 400 MG TABLET PO PRN (15:44)
[2017-06-19] MEDS: traZODone 50 MG TABLET PO SCH (21:58)
[2017-06-19] MEDS: hydrOXYzine pamoate 25 MG CAPSULE PO PRN (21:58)
[2017-06-20] MEDS: Nicotine 21 MG PATCH.TD24 TD SCH (08:22)
--- NOTE | 2017-06-20 11:19 | Psychiatry Progress Note ---
Date of Encounter: 06/20/17 Time of Encounter: 11:00 Subjective Interval history: Patient seen today , case d/w treatment team and medications are helping , he was started on celexa and he found out his mom is also on celexa and it has been helping. he has been compliant with treatment plan and unit miliue. he has been more out of room , depression improving in structure enviornment no suicidal /homicidal thoughts. Review of Systems Psychiatric: Reports: depression, anxiety, abnormal sleep pattern, suicidal ideation, anhedonia Objective: Exam Patient orientation: Yes Person, Yes Time, Yes Place Level of alertness: Alert Patient appearance: Appropriate Behavior: cooperative, anxious Psychomotor activity: Normal Eye contact: Maintains Eye Contact Mood description: Depressed, Anxious Affect description: congruent with mood Speech pattern: Coherent Speech volume: Normal Thought process: Intact Thought content: Yes Intact Judgment: Limited Insight: Partial Results - Vital Signs Vital Signs: Temp Pulse Resp BP 98.6 F 75 18 126/81 06/19/17 19:56 06/20/17 08:55 06/19/17 19:56 06/20/17 08:55 Assessment and Plan (1) Major depressive disorder with single episode Current visit: Yes Status: Acute Risks, benefits, side effects, alternatives discussed w/pt: Yes Patient agreeable to treatment: Yes Qualifiers: Active/Remission status: currently active Major depression episode severity : severe Psychotic features: without psychotic features Qualified Code(s): F32.2 - Major depressive disorder, single episode, severe without psychotic features (2) Suicidal ideation Current visit: No Status: Acute Risks, benefits, side effects, alternatives discussed w/pt: Yes Patient agreeable to treatment: Yes (3) Alcohol dependence Current visit: Yes Status: Acute Risks, benefits, side effects, alternatives discussed w/pt: Yes Patient agreeable to treatment: Yes Qualifiers: Substance use status: with intoxication (4) Anxiety Current visit: Yes Status: Chronic Risks, benefits, side effects, alternatives discussed w/pt: Yes Patient agreeable to treatment: Yes Consult Discharge Plan - Plan Referrals: [facility] [Outside] - 06/29/17 10:30 am (The above appointment is with Chasity Her, counselor at [facility]. Your first appointment will be very thorough and the total appointment time will take between two and three hours. You will be completing paperwork, meeting with a counselor and a nurse, and developing a treatment plan. You will receive follow- up appointments for on-going services , which could include community support, mental health and substance abuse counseling, groups/partial hospitalization programming, medication assisted treatment, and psychiatric medication management. Please bring the following with you to your first visit to the clinic: 1) proof of household income (two consecutive pay stubs, social security award letter, bank statement, statement letter from [facility], child support statement, IRS 1040 or W2 form, or a statement from the person who financially supports you stating they help provide for your basic needs), 2) proof of residency (drivers license, a piece of mail showing your address, a statement from person you live with verifying you live at their address), 3) your social security card, 4) photo ID, and 5) your insurance card (if you have commercial insurance you must call to obtain a prior authorization number before you arrive to your first appointment). If you do not bring these items, you will not be seen. ) Denise Duron [Advanced Practice Nurse] - 06/27/17 12:00 pm (The above appointment is with Denise Duron CNP, at [facility]. This appointment is to establish you with a primary care provider. Your needs for medication and/or Vivitrol will be assessed and treated as indicated as well. Please arrive 15 minutes early to complete paperwork. Please bring your insurance card, photo ID and list of current medications to your first appointment. The above appointment(s) reflects first availability. You may contact the office regularly to check for cancellations that may allow you to be seen sooner.)
[2017-06-20] MEDS: Ibuprofen 400 MG TABLET PO PRN (16:12)
[2017-06-20] MEDS: traZODone 50 MG TABLET PO SCH (20:02)
[2017-06-20] MEDS: hydrOXYzine pamoate 25 MG CAPSULE PO PRN (20:04)
[2017-06-21] MEDS: Nicotine 21 MG PATCH.TD24 TD SCH (08:06)
--- NOTE | 2017-06-21 10:16 | Discharge Summary ---
Date of Encounter: 06/21/17 Time of Encounter: 09:45 Diagnosis - Discharge Diagnosis (1) Major depressive disorder with single episode Status: Chronic Comments: Patient is stable at present , depression is improving,he is compliant with treatment plan, he has shown improvement and not suicidal/homicidal. Qualifiers: Active/Remission status: currently active Major depression episode severity : severe Psychotic features: without psychotic features Qualified Code(s): F32.2 - Major depressive disorder, single episode, severe without psychotic features (2) Suicidal ideation Status: Resolved Comments: patients not in imenent danger to self/others (3) Alcohol dependence Status: Acute Comments: Patient declined naltrexone, he will go for counselling and AA counselling Qualifiers: Substance use status: with intoxication Complication of substance-induced condition: uncomplicated Qualified Code(s): F10.220 - Alcohol dependence with intoxication, uncomplicated (4) Anxiety Status: Chronic Medications - Discharge Medications Prescriptions: Citalopram [CeleXA] 20 mg PO DAILY #14 tablet traZODone [TraZODone] 50 mg PO HS #14 tablet Folic Acid 1 mg PO DAILY #30 tablet 06/17/17 [Rx] Nicotine Patch [Nicoderm] 21 mg TD DAILY #7 patch.[id number] 06/17/17 [Rx] Thiamine (B-1) [Vitamin B-1] 100 mg PO DAILY #30 tablet 06/17/17 [Rx] Vitamin B Complex/Vit C/Vit E [Stresstab] 1 tab PO DAILY 06/17/17 [History] Citalopram [CeleXA] 20 mg PO DAILY #14 tablet 06/21/17 [Rx] traZODone [TraZODone] 50 mg PO HS #14 tablet 06/21/17 [Rx] 3 Allergy/AdvReac Type Severity Reaction Status Date / Time No Known Allergies Allergy Verified 06/15/17 06:35 Provider Date of admission: 06/18/17 10:51 Primary care physician: PCP NONE Assessment and Plan - Patient/Caregiver Discharge Instructions Activity: resume usual activities as tolerated, return to work Diet: regular diet (patient not in danger to self or others.) - [facility] 10:30 am (The above appointment is with Chasity Her, counselor at [facility]. Your first appointment will be very thorough and the total appointment time will take between two and three hours. You will be completing paperwork, meeting with a counselor and a nurse, and developing a treatment plan. You will receive follow- up appointments for on-going services , which could include community support, mental health and substance abuse counseling, groups/partial hospitalization programming, medication assisted treatment, and psychiatric medication management. Please bring the following with you to your first visit to the clinic: 1) proof of household income (two consecutive pay stubs, social security award letter, bank statement, statement letter from [employer], child support statement, IRS 1040 or W2 form, or a statement from the person who financially supports you stating they help provide for your basic needs), 2) proof of residency (drivers license, a piece of mail showing your address, a statement from person you live with verifying you live at their address), 3) your social security card, 4) photo ID, and 5) your insurance card (if you have commercial insurance you must call to obtain a prior authorization number before you arrive to your first appointment). If you do not bring these items, you will not be seen. ) Denise Duron [Advanced Practice Nurse] - 06/27/17 12:00 pm (The above appointment is with Denise Duron CNP, at [facility]. This appointment is to establish you with a primary care provider. Your needs for medication and/or Vivitrol will be assessed and treated as indicated as well. Please arrive 15 minutes early to complete paperwork. Please bring your insurance card, photo ID and list of current medications to your first appointment. The above appointment(s) reflects first availability. You may contact the office regularly to check for cancellations that may allow you to be seen sooner.) Disposition: Home, Self-Care Hospital Course Hospital course: Mr. Jovel is a 31 year old male who was admitted from medical unit after alcohol detox, he has been drinking and tried ti hang self but he did not and told his and came to hospital. During his hospital stay he was started on celexa and trazodone and he was compliant with treatment milieu. he was educated about his depression , anxiety and alcohol use. he has short and intermediate goals, he has support and will live with parents till he gets better , he has his own place also, he is employed . at present his moods are stable , some anxiety , no cravings , no si/hi. he has gained insight and has good judgement. Time spent discussing smoking cessation with patient: 3 to 10 minutes Does patient wish to continue nicotine replacement upon disc: No (he states he use tobacco and not willing to give up , education given.) - Time Spent with Patient Total time spent providing and/or coordinating discharge services: Greater than 30 minutes Quality - Multiple Antipsychotics Patient discharged on 2 or more antipsychotic medications: No Procedures - Procedures Procedures: Medication Management, Crisis Stabilization, Supportive Therapy, Group Therapy, Psychoeducational Therapy Mental Status Exam - Mental Status Exam Patient orientation: Yes Person, Yes Time, Yes Place Level of alertness: Alert Patient appearance: Appropriate, Well Groomed Behavior: calm, cooperative Psychomotor activity: Normal Eye contact: Maintains Eye Contact Mood description: Euthymic/stable Affect description: congruent with mood Speech pattern: Coherent Speech Volume: Normal Thought process: Intact Thought Content: Yes Intact Judgment: Good Insight: Full
[2017-06-21 11:19] VITALS: BP 119/72
== END 2017-06-21 11:05 | disposition home or self-care (01) | DRG 775 ==
LOC: 1ANU
PROVIDERS: ADMIT Psychiatry & Neurology Psychiatry; ATTEND Psychiatry & Neurology Psychiatry